=== PATIENT | female | born 1990 | race Caucasian/White ===

== ENCOUNTER 2016-09-17 22:57 | Inpatient (IN) | payer OTHER ==
[~2016-09-17] VITALS: Ht 180.3 cm; Wt 114.0 kg
--- NOTE | ~2016-09-17 | OR ---
PATIENT'S NAME: GRACIELA VIRGEN [facility] AGE: 25 [address] ROOM: [address] [address] LOCATION: GOBS ADMIT DATE: 09/17/2016 OR/Procedure Report DISCHARGE DATE: FAMILY PHYSICIAN: Nancy Umanzor MD ATTENDING PHYSICIAN: EBONY NGUYEN SURGEON: Nancy Umanzor MD IN [place]: DATE OF PROCEDURE: 09/18/2016 DELIVERY NOTE: TIME OF DELIVERY: At 1136 hours. This G1, P0, female, under epidural anesthesia delivered a viable female infant, weighing 8 pounds 0 ounces with scores of 9 and 9 at one and five minutes. Mom came in after spontaneous rupture at home producing clear fluids around 9:00 p.m., the night prior. She was slow to progress and slow to dilate, therefore approximately 10 hours ruptured. We decided to add some Pitocin. She got five milliunits of Pitocin and progressed nicely with that to complete. Delivery was via spontaneous vaginal delivery to a sterile field. Anterior shoulder was the left and delivered spontaneously. Baby delivered then normally thereafter. The baby was bulb suctioned at delivery. The baby was then stimulated, had a nice cry, and pinked up nicely. The cord was doubly clamped and dad cuts the cord. Mom did not wish to do skin-to- skin, so baby was handed to the waiting nurse. Cord blood was sent for analysis. The intact placenta with 3-vessel cord delivered spontaneously shortly after delivery of the baby. The uterus was then massaged and clamped down nicely and Pitocin is opened up and given through bag of IV fluids. The patient's cervix, vagina, and perineum were explored and she does have a second-degree laceration, which was repaired in standard fashion using 3-0 Vicryl suture. Sponge counts and needle counts are correct. Estimated blood loss is 300 mL. Fluids are clear throughout. Baby and mom are doing well and in stable condition. MD VITO NESBITT/janetl /[id number] d: 09/18/162019 t: 10/09/16 0949, OPERATIVE SUMMARY
[2016-09-17] MEDS ORDERED: PRENATAL 1+1)(P1 TAB PO (23:50)
[2016-09-18 02:36] LABS: BASOPHIL # 0.1 K/uL (0.0-0.2); BASOPHIL % 0.5 %; EOSINOPHIL # 0.1 K/uL (0.0-0.5); HEMATOCRIT 36.2 % (33.0-46.0); HEMOGLOBIN 12.2 g/dL (11.0-15.0); IMMATURE GRANULOCYTE # 0.1 K/uL (0.0-0.3); LYMPHOCYTE # 2.8 K/uL (0.8-4.0); LYMPHOCYTE % 22.5 %; MCH 31.5 pg (27.0-34.0); MCHC 33.7 gm/dL (32.0-36.5); MCV 93.5 fl (83.0-98.0); MONOCYTE # 0.8 K/uL (0.0-1.0); MONOCYTE % 6.7 %; MPV 12.7 fl (9.4-12.4); NEUTROPHIL # (ANC) 8.6 K/uL (1.8-7.8); NEUTROPHIL % 68.3 %; NRBC % 0 /100WBC (0-0.00); PLATELET COUNT 164 K/uL (150-450); RBC 3.87 M/uL (3.50-5.00); WBC 12.6 K/uL (4.0-11.0)
[2016-09-19 05:27] LABS: BASOPHIL % 0.2 %; EOSINOPHIL # 0.1 K/uL (0.0-0.5); EOSINOPHIL % 0.5 %; HEMATOCRIT 33.7 % (33.0-46.0); HEMOGLOBIN 11.2 g/dL (11.0-15.0); IMMATURE GRANULOCYTE # 0.1 K/uL (0.0-0.3); IMMATURE GRANULOCYTE % 0.6 %; LYMPHOCYTE # 2.2 K/uL (0.8-4.0); LYMPHOCYTE % 13.6 %; MCH 30.9 pg (27.0-34.0); MCHC 33.2 gm/dL (32.0-36.5); MCV 92.8 fl (83.0-98.0); MONOCYTE # 0.8 K/uL (0.0-1.0); MONOCYTE % 4.7 %; MPV 12.6 fl (9.4-12.4); NEUTROPHIL # (ANC) 13.1 K/uL (1.8-7.8); NEUTROPHIL % 80.4 %; NRBC % 0 /100WBC (0-0.00); PLATELET COUNT 132 K/uL (150-450); RBC 3.63 M/uL (3.50-5.00); RDW-CV 13.2 % (11.9-14.6)
[2016-09-19 05:34] LABS: WBC 16.4 K/uL (4.0-11.0)
--- NOTE | 2016-09-19 11:11 | NUR ---
Met with patient at bedside today. Introduced myself and the role of the CM department. Patient states they have all the necessary items at home for baby. Instructed mom that she needs to call her insurance within the first 30 days to get baby added to the policy. Discussed signs and symptoms of post depression with her and left her the handout on this topic. Mom denies any discharge needs or concerns.
--- NOTE | 2016-09-19 17:53 | NUR ---
d: 0740 Pt reports epidural dressing, gown & bedding noted to be wet. Upon inspection bed, t-shirt & gown are all noted to be wet. TEDDY De Leon notified. 0830 LEGAL DOCUMENT SPECIALIST in room. Epidural catheter removed by LEGAL DOCUMENT SPECIALIST with tip intact. Clear fluid noted leaking from epidural puncture site. Pressure dressing in place. 1030 Pt reports that dressing is wet. Removed & gauze noted to be saturated & fluid continues to leak slightly from site. New pressure dressing in place & LEGAL DOCUMENT SPECIALIST notified. 1230 TEDDY Jose in room to assess pt. Spinal headache & epidural blood patch discussed at length & questions answered. Pt rating headache pain "1" @ this time. Pt instructed by TEDDY to continue to force fluids & caffeine & to keep clean pressure dressing & rolled towel behind back. Pt may shower this evening if leaking has stopped. Pt to notify RN if headache pain becoming severe. 1330 Pressure dressing changed & noted to be slightly wet. New dressing in place & pt resting with rolled towel behind back. 1630 Dressing assessed & noted to be clean dry & intact.
--- NOTE | 2016-09-20 05:39 | NUR ---
VSS, fundus firm, midline, small flow, Perc last at 1955, showered
[2016-09-20] MEDS ORDERED: DERMOPLAST SPRA56 GM TOP (11:37)
[2016-09-20] MEDS ORDERED: MOTRIN800 MG PO (11:38)
[2016-09-20] MEDS ORDERED: PERCOCET 5-3251 EACH PO ×2 (11:38→11:39)
--- NOTE | 2016-09-20 16:26 | NUR ---
Last VS: T:97.6 P:78 R: 16 BP: 135/72 Pain ratin. Last pain med: Motrin Medicated at: 0548 Effective: Yes Breasts: SOFT Nipples: ERECT Fundus: FIRM, MIDLINE Lochia: SMALL, RUBRA Epis/Perineum: EDEMATOUS Voiding well: Yes Significant event: VSS, AFEBRILE. DENIES HEADACHE. DISCHARGED INSTRUCTIONS DISCUSSED, VERBALIZED UNDERSTANDING. ESCORTED TO VEHICLE, BELONGINGS WITH PATIENT. DC TO HOME AT 1600.
== END 2016-09-20 16:00 | disposition disaster alternative care site (69) | DRG 775 ==
LOC: GOBM 22:57 → GOBS 22:57 → GOBM 23:00 → GOBS 09-20 16:00
PROVIDERS: Family Medicine; ADMIT Family Medicine
PROC: 10E0XZZ Delivery of Products of Conception, External Approach (ICD-10-PCS; principal; 2016-09-18)
PROC: 4A1HX4Z Monitoring of Products of Conception, Cardiac Electrical Activity, External Approach (ICD-10-PCS; principal; 2016-09-18)
PROC: 0KQM0ZZ Repair Perineum Muscle, Open Approach (ICD-10-PCS; principal; 2016-09-18)
DX: O70.1 Second degree perineal laceration during delivery (principal); Z37.0 Single live birth; Z88.0 Allergy status to penicillin; Z3A.38 38 weeks gestation of pregnancy
CPT/HCPCS: J2001; J2590; J3010; J7120